=== PATIENT | male | born 1995 | race Caucasian/White ===

== ENCOUNTER 2017-11-27 15:27 | Emergency (ER) | payer MEDICAID ==
[2017-11-27] MEDS: IBUPROFEN 800 MG TAB PO (15:52)
== END 2017-11-27 17:24 | disposition home or self-care (01) ==
LOC: FTE 15:27
DX: J02.9 Acute pharyngitis, unspecified (principal); F17.210 Nicotine dependence, cigarettes, uncomplicated
CPT/HCPCS: 99283; Z7502